=== PATIENT | male | born 1985 | race Caucasian/White ===

== ENCOUNTER 2017-06-14 10:12 | Day surgery (SDC) | payer BC ==
[~2017-06-14] VITALS: Ht 177.8 cm; Wt 92.5 kg
[~2017-06-14 10:12] MED LIST: CEFAZOLIN 1 GM IVPB PREMIX 50 ML IV ONE
[2017-06-14] MEDS ORDERED: POLYMYXIN 500,000/BACIT.10,000 UNITS in NS IRR 1 L IR ONE (10:30)
[2017-06-14] MEDS ORDERED: ROCURONIUM BROMIDE 10 MG/ML (ZEMURON) IV ONE (10:40)
[2017-06-14] MEDS ORDERED: GLYCOPYRROLATE 0.2 MG/ML VIAL IJ ONE (10:40)
[2017-06-14] MEDS ORDERED: PROPOFOL 200MG/ 20ML VIAL (DIPRIVAN) IV ONE (10:40)
[2017-06-14] MEDS ORDERED: MIDAZOLAM HCL 5 MG/5 ML VIAL IVP ONE (10:40)
[2017-06-14] MEDS ORDERED: fentaNYL CITRATE/PF 100 MCG/2 ML AMP IVP ONE (10:40)
[2017-06-14] MEDS ORDERED: NEOSTIGMINE METHYLSULFATE 1 MG/ML, 10 ML VIAL IVP ONE (10:40)
[2017-06-14] MEDS ORDERED: SEVOFLURANE 15 MIN GAS INH ONE (10:40)
[2017-06-14] MEDS ORDERED: fentaNYL CITRATE/PF 100 MCG/2 ML AMP IVP PRN ×2 (11:15)
[2017-06-14] MEDS ORDERED: ONDANSETRON HCL 4 MG/2 ML VIAL IVP PRN (11:15)
[2017-06-14] MEDS ORDERED: KETOROLAC TROMETHAMINE 30 MG VIAL IVP PRN (11:15)
[2017-06-14] MEDS ORDERED: D5/0.45 NS 1,000 ML IV SCH (11:32)
[2017-06-14] MEDS ORDERED: HYDROmorphone 1 MG INJ. 1 MG/ML AMPUL IVP PRN (11:45)
[2017-06-14] MEDS ORDERED: HYDROcodone/ACETAMIN 5-325 MG TAB (NORCO/ VICODIN) PO PRN ×2 (11:45)
[2017-06-14] MEDS ORDERED: ONDANSETRON HCL 4 MG/2 ML VIAL ONE (14:01)
[2017-06-14 14:44] VITALS: BP_SYST 115
== END 2017-06-14 14:40 | disposition home or self-care (01) ==
LOC: SDS 10:12 → SMU 10:25 → SDS 14:40
PROVIDERS: ATTEND Colon & Rectal Surgery
DX: L05.91 Pilonidal cyst without abscess (principal)
CPT/HCPCS: 11770; 88304; J0690; J2250; J2405; J2704; J2710; J3010; J3490; J7120